=== PATIENT | male | born 2000 | race Caucasian/White ===

== ENCOUNTER 2021-08-29 00:16 | Emergency (ER) | payer OTHER ==
[2021-08-29] MEDS ORDERED: Ondansetron PF 4 MG/2 ML Vial ONE (01:06)
== END 2021-08-29 01:50 | disposition home or self-care (01) ==
LOC: MADERS 00:16
DX: A08.4 Viral intestinal infection, unspecified (principal); F17.200 Nicotine dependence, unspecified, uncomplicated
CPT/HCPCS: 96374; J2405